=== PATIENT | male | born 1990 | race Caucasian/White ===

== ENCOUNTER → 2020-03-11 09:50 | Outpatient (POV) | payer BC, SELFPAY ==
[2020-03-11 10:07] VITALS: BP 154/98; PULSE 82; RESP 18; TEMP 36.4; O2SAT 99; BMI 33.2
--- NOTE | 2020-03-11 13:08 | HMH.PMCON ---
Assessment and Plan (1) Degenerative disc disease Current visit: Yes Status: Chronic Qualifiers: Spinal region: lumbar Qualified Code(s): M51.36 - Other intervertebral disc degeneration, lumbar region Category: Medical (2) Lumbar facet arthropathy Current visit: Yes Status: Chronic Category: Medical Code(s): M47.816 - Spondylosis without myelopathy or radiculopathy, lumbar region - Assessment and plan all Dx Assessment and Plan for all problems:: We will schedule L4-L5 L5-S1 bilateral medial branch block. I discussed the diagnostic nature of this with the patient. He understands. I will follow-up with him after his injection reassess his symptoms at that time he has been instructed to call the office if he has any issues prior to his next appointment. Dr. Crum has reviewed this note and agrees with this plan of care. This note was dictated using voice recognition software and may contain errors or omissions HPI - Data of Consult Consult date: 03/11/20 Requesting Physician: Karli Thorne APRN Primary Care Provider: Referral Provider, MD - Consult Narrative Reason for consult: Back pain, leg pain History of present illness: Mr. Luu is a 29 year old male who presents today for consultation in regards to his low back and leg pain. Patient had a work injury about 9 years ago resulting in low back and leg pain. This is been managed with epidural injections. Patient had epidurals in [place] and then in [place]. Patient is interested in starting to get his injections at this location. And what else we have to offer. Patient is in significant pain rating it a 7 out of 10 he is visibly uncomfortable. Patient is having a lot of focal pain. He states that epidural injections do not alleviate most of his low back pain. He is interested in RFA. I discussed the need for medial branch blocks as a diagnostic. He understands. He does have facet loading lumbar spine CC: Karli Thorne APRN [facility] History I have reviewed the patient's past medical history: Yes Medical History: Denies:: Cancer, Diabetes Mellitus Type 1, Diabetes Mellitus Type 2, MRSA *Have you ever received a pneumonia vaccine?: Yes *Have you received a flu vaccine this season?: Yes Laterality Cases: Right: Arthroscopy Knee, Other, Bilateral: Tonsillectomy Amputation: No Fractures: No - *Social History Smoking Status: Never smoker Alcohol Intake: never *Occupational Status:: other Housing: house Household Members: other *Travel in the last 8 weeks: None Family Hx:: Unable to obtain Review of Systems - Review of Systems ROS General: no recent weight change, no fever, no sleep disturbances Respiratory: no cough, no shortness of air, no recurring pulmonary infections Cardiovascular/Peripheral Vascular: No chest pain, No palpitations, no edema, no shortness of breath. Gastrointestinal: no new onset incontinence, normal bowel movements reported Genitourinary: no new onset incontinence Musculoskeletal: Back pain Psychiatric: normal mood/ affect Neurological: [denies new onset weakness in extremities], [denies new onset balance issues] Meds Home Medications Medication Instructions Recorded Confirmed Type Propranolol HCl 40 mg PO DAILY 03/11/20 03/11/20 History Allergies Allergy/AdvReac Type Severity Reaction Status Date / Time azithromycin Allergy Verified 03/11/20 10:12 calamine Allergy Verified 03/11/20 10:12 Objective Vital signs: Temp Pulse Resp BP Pulse Ox 97.5 F L 82 18 154/98 H 99 03/11/20 10:07 03/11/20 10:07 03/11/20 10:07 03/11/20 10:07 03/11/20 10:07 Narrative: Physical Exam General: Alert and oriented x3, no acute distress, pleasant and cooperative, [on room air] Lungs: Resps E/U, Symmetrical chest expansion, Eyes: PERRL Musculoskeletal: Flexion and extension of lumbar spine somewhat guarded secondary to pain, deep tendon reflexes
== END ==
PROVIDERS: Visit Provider Clinical Nurse Specialist Family Health
DX: M51.36 Other intervertebral disc degeneration, lumbar region (principal); M47.816 Spondylosis without myelopathy or radiculopathy, lumbar region
CPT/HCPCS: 99202

== ENCOUNTER 2020-03-14 10:16 | Day surgery (SDC) | payer BC, SELFPAY ==
[2020-03-14 10:44] VITALS: BP 145/101; PULSE 72; RESP 18; O2SAT 98; BMI 33.2
[2020-03-14 11:23] VITALS: BP 130/88; BP 132/85; PULSE 85; RESP 18; O2SAT 99
[2020-03-14 11:40] VITALS: BP 143/98; PULSE 70; RESP 20; O2SAT 98
--- NOTE | 2020-03-14 12:12 | HMH.PMPROC ---
- Procedure Date: 03/14/20 Time: 12:12 Anesthesiologist:: Franklin Crum MD Complications:: None Pre-procedure Diagnosis:: Degenerative disc disease of lumbar spine with lumbar spondylosis and facet arthropathy of lumbar spine Post-procedure Diagnosis:: Same Indications for Procedure:: This patient is a pleasant 29-year-old white male who we are treating for low back pain with lumbar spondylosis and lumbar facet arthropathy. He has had epidurals in the past. Most of his pain is now in his back worse with extension and twisting. We will do bilateral lumbar medial branch block/facet joint injections of L4-5 and L5-S1 today to help him with his pain symptoms. Procedure Details:: Lumbar medial branch block Informed consent was obtained and the risks and benefits of the procedure was explained to the patient. The back was prepped using ChloraPrep. The skin and subcutaneous tissues were anesthetized using lidocaine. I placed 22-gauge spinal needles into the facet joint/medial branches of L4-L5 and L5-S1 bilaterally. Needle placement was confirmed with dye. After this we injected 3 mL bupivacaine 0.25% and Depo-Medrol 20 mg into each facet joint/medial branch of L4-L5 and L5-S1 bilaterally. We used a total of 80 mg Depo-Medrol for both levels bilaterally. The patient tolerated the procedure well with no complications. Plan and Disposition:: We will follow-up with him in 2 weeks. Will reevaluate symptoms at that time. If successful we may proceed to radiofrequency ablation of these levels of L4-5 and L5-S1 bilaterally.
== END 2020-03-14 11:40 | disposition home or self-care (01) ==
LOC: SC.PAINP 10:18
PROVIDERS: Visit Provider Anesthesiology
DX: M51.36 Other intervertebral disc degeneration, lumbar region (principal); M47.816 Spondylosis without myelopathy or radiculopathy, lumbar region; M12.88 Other specific arthropathies, not elsewhere classified, other specified site; Z87.39 Personal history of other diseases of the musculoskeletal system and connective tissue; Z90.89 Acquired absence of other organs; Z79.899 Other long term (current) drug therapy; Z88.8 Allergy status to other drugs, medicaments and biological substances
CPT/HCPCS: 64493; 64494; J1030; Q9966

== ENCOUNTER → 2020-03-21 08:45 | Outpatient (CLI) | payer BC, SELFPAY ==
--- NOTE | 2020-03-21 08:50 | XR_ITS ---
PROCEDURE: XR KNEE LT 4V CLINICAL INDICATION: bilateral knee pain COMPARISON: XR KNEE RT 4V from 03/21/2020 FINDINGS: No fracture or dislocation. No lytic or blastic change. There is normal mineralization. The joint spaces are well-preserved. No significant degenerative/arthritic changes. No erosive changes evident. Other findings:None. IMPRESSION: No acute findings. Dictated by: Dr. Troy Ivey MD 03/21/2020 09:[address] Troy Ivey MD in [place] 03/21/2020 09:13
--- NOTE | 2020-03-21 08:50 | XR_ITS ---
PROCEDURE: XR KNEE RT 4V CLINICAL INDICATION: bilateral knee pain COMPARISON: No exams were available for comparison FINDINGS: No fracture or dislocation. No lytic or blastic change. There is normal mineralization. The joint spaces are well-preserved. No significant degenerative/arthritic changes. No erosive changes evident. Other findings:None. IMPRESSION: No acute findings. Dictated by: Dr. Troy Ivey MD 03/21/2020 09:[address] Troy Ivey MD in [place] 03/21/2020 09:14
== END ==
PROVIDERS: Visit Provider Orthopaedic Surgery
DX: M25.561 Pain in right knee (principal); M25.562 Pain in left knee
CPT/HCPCS: 73564

== ENCOUNTER → 2020-04-07 14:02 | Outpatient (POV) | payer BC, SELFPAY ==
[2020-04-07 14:34] VITALS: BP 157/94; PULSE 94; RESP 18; TEMP 36.6; O2SAT 99; BMI 32.5
--- NOTE | 2020-04-07 15:17 | P.CONS_ITS ---
[facility] Pain Management SOAP Note Subjective:: Patient is a pleasant 29-year-old white male who presents today for follow-up after medial branch block. Patient states that he did not have much relief after his lumbar medial branch block. Now he is having radiation of pain into his legs. He rates his pain a 6 out of 10. He has had epidurals in the past with good relief. Patient and I discussed doing another epidural injection and he is interested in moving forward. We also briefly discussed neuro stimulation. I do believe it may be a long-term solution to his issues. The majority of his pain is in his his low back and bilateral legs. I gave him information in regards to this. He is not on any anticoagulation therapy. ROS General: no recent weight change, no fever, no sleep disturbances Respiratory: no cough, no shortness of air, no recurring pulmonary infections Cardiovascular/Peripheral Vascular: No chest pain, No palpitations, no edema, no shortness of breath. Gastrointestinal: no new onset incontinence, normal bowel movements reported Genitourinary: no new onset incontinence Musculoskeletal: Back pain, leg pain Psychiatric: normal mood/ affect, [denies depression], [denies anxiety] Neurological: [denies new onset weakness in extremities], [denies new onset balance issues] Objective:: Physical Exam General: Alert and oriented x3, no acute distress, pleasant and cooperative, [on room air] Lungs: Resps E/U, Symmetrical chest expansion, Eyes: PERRL Musculoskeletal: Flexion and extension of lumbar spine somewhat guarded secondary to pain, deep tendon reflexes normal, strength in upper and lower extremities [5/5], slightly antalgic gait noted Neurological: speech clear, 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 I will follow- up with the patient after this reassess his symptoms at that time I did give him information in regards to neuro stimulation. He has been instructed to call the office if he has any issues prior to his next appointment. Dr. Crum has reviewed this note and agrees with this plan of care. This note was dictated using voice recognition software and may contain errors or omissions [facility] History I have reviewed the patient's past medical history: Yes Medical History: Denies:: Cancer, Diabetes Mellitus Type 1, Diabetes Mellitus Type 2, MRSA, Seizures *Have you ever received a pneumonia vaccine?: Yes *Have you received a flu vaccine this season?: Yes Laterality Cases: Left: Arthroscopy Knee, Right: Other, Bilateral: Tonsillectomy Amputation: No Fractures: No - *Social History Smoking Status: Never smoker Alcohol Intake: never *Occupational Status:: other Housing: house Household Members: other *Travel in the last 8 weeks: None Family Hx:: Unable to obtain
== END ==
PROVIDERS: Visit Provider Clinical Nurse Specialist Family Health
DX: M51.16 Intervertebral disc disorders with radiculopathy, lumbar region (principal); M47.816 Spondylosis without myelopathy or radiculopathy, lumbar region; M12.88 Other specific arthropathies, not elsewhere classified, other specified site
CPT/HCPCS: 99212

== ENCOUNTER 2020-04-11 14:18 | Day surgery (SDC) | payer BC, SELFPAY ==
[2020-04-11 15:13] VITALS: BP 129/89; PULSE 80; RESP 18; TEMP 37.1; O2SAT 98; BMI 32.5
--- NOTE | 2020-04-11 15:36 | HMH.PMPROC ---
- Procedure Date: 04/11/20 Time: 15:36 Anesthesiologist:: Franklin Crum MD Complications:: None Pre-procedure Diagnosis:: Degenerative disc disease of lumbar spine with lumbar radiculopathy symptoms Post-procedure Diagnosis:: Same Indications for Procedure:: This patient is a pleasant 29-year-old white male who we are treating for low back pain with lumbar radiculopathy symptoms. He is status post medial branch blocks without much relief. He does have pain radiating to both legs. We will do lumbar epidural steroid injection today to see if this will help with his pain symptoms. Procedure Details:: Lumbar epidural steroid injection under fluoroscopy Informed consent was obtained and the risk and benefits of the procedure was explained to the patient. The patient was taken to the procedure room. The patient was placed prone on the procedure table. The patient was prepped and draped in sterile fashion. C-arm fluoroscopy was used to view the lumbar spine. Skin and subcutaneous tissues were anesthetized using lidocaine. I placed an 18-gauge epidural needle and advanced into the L4-L5 interspace using fluoroscopic guidance and [id number] to air. After confirmation of needle placement in the epidural space with dye I injected 2 mL of lidocaine 1.5% with Depo-Medrol 80 mg. Patient tolerated the procedure well with no complications. Plan and Disposition:: We will plan on following up with him in 2 weeks. Will reevaluate symptoms at that time.
[2020-04-11 15:42] VITALS: BP 132/85; PULSE 85; RESP 18; O2SAT 99
[2020-04-11 15:43] VITALS: BP 138/89; PULSE 88; RESP 18; O2SAT 98
[2020-04-11 15:47] VITALS: BP 155/99; PULSE 75; RESP 20; O2SAT 99
== END 2020-04-11 15:47 | disposition home or self-care (01) ==
LOC: SC.PAINP 14:20
PROVIDERS: PCP Family Medicine; Visit Provider Anesthesiology
DX: M51.16 Intervertebral disc disorders with radiculopathy, lumbar region (principal); I49.9 Cardiac arrhythmia, unspecified; F43.10 Post-traumatic stress disorder, unspecified; Z87.39 Personal history of other diseases of the musculoskeletal system and connective tissue; Z90.89 Acquired absence of other organs; Z88.1 Allergy status to other antibiotic agents; Z88.8 Allergy status to other drugs, medicaments and biological substances; Z79.899 Other long term (current) drug therapy
CPT/HCPCS: 62323; J1040; Q9966

== ENCOUNTER → 2020-05-08 08:55 | Outpatient (POV) | payer BC, SELFPAY ==
[2020-05-08 09:26] VITALS: BP 152/84; PULSE 85; RESP 18; O2SAT 98; BMI 32.5
--- NOTE | 2020-05-08 10:20 | HMH.PAINSOAP ---
[facility] Pain Management SOAP Note Subjective:: Patient is a 29-year-old white male who presents today for follow-up. He recently underwent a lumbar epidural steroid injection at L4-L5. Patient is being treated for low back pain with lumbar radiculopathy symptoms. He complains of pain radiating into his right leg causing numbness and tingling and intermittent numbness and tingling to his left foot. He reports the pain to be worse with sitting and driving. He says when he is laying down the pain is less. Patient says that he has tried medial branch blocks as well as lumbar epidural steroid injections for over 11 years. 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 He says that he has tried multiple series of injections with no relief. He has even been hospitalized in the past for the pain. He says his last imaging of his lumbar spine was in 2016. He would like to discuss possible imaging and discuss possible spinal cord stimulation. Review of Systems General: No recent weight changes, no fever, no sleep disturbances Respiratory: No cough, no shortness of air, no recurring pulmonary infections Cardiovascular/peripheral vascular: No chest pain, no palpitations, no edema, no shortness of breath Gastrointestinal: No new onset incontinence, normal bowel movements reported Genitourinary: No new onset incontinence Musculoskeletal: Back pain, right leg pain with numbness and tingling, intermittent foot numbness and tingling Psychiatric: Normal mood/affect Neurological: [Denies weakness in extremities], [denies balance issues] Objective:: Physical exam General: Alert and oriented x3, no acute distress, pleasant and cooperative, [on room air] Lungs: Respirations even and unlabored, symmetrical chest expansion Eyes: PERRL Musculoskeletal: Flexion and extension of lumbar spine somewhat guarded secondary to pain, deep tendon reflexes normal, strength in upper and lower extremities [5/5], [abnormal gait noted] Neurological: Speech clear, retort kiln 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 He says that he needs to get back to work and does say that he is having difficulty even doing normal activities throughout the house as well as with his 1-year-old son. He says that he would like to just get some relief. At this point, he has tried all modalities of therapy with physical therapy, home stretching program, and inflammatories. Patient is not interested in oral opiates. Rates his pain a 6 out of 10. We will get another MRI of his lumbar spine. We will also send him for a psychological evaluation to see if he is an appropriate candidate for an implanted device such as spinal cord stimulation or intrathecal therapy. He has tried injections not gotten any relief. Patient has been instructed to contact clinic if he has any concerns before his next appointment. The patient and I specifically discussed risk factors for COVID19. These risks include, but are not limited to age greater than 60, heart or lung disease, diabetes, immunosuppression, and travel. We also discussed NSAIDs may worsen COVID19 infection or symptoms. Patient should not use NSAIDs to treat COVID19 signs or symptoms. Patient was also informed that any type of corticosteroid of any form (oral or injection) will decrease the patient's immune system response and may increase the likelihood of COVID19 infection [address] symptoms[address] Crum has reviewed this note and agrees with this plan of care. This note was dictated using voice recognition software and make contain errors or omissions. [facility] History I have reviewed the patient's past medical history: Yes Medical History: Reports:: Arrhythmia Denies:: Cancer, Diabetes Mellitus Type 1, Diabetes Mellitus Type 2, Music Adapter
== END ==
PROVIDERS: Visit Provider Clinical Nurse Specialist Family Health
DX: M51.16 Intervertebral disc disorders with radiculopathy, lumbar region (principal); G89.29 Other chronic pain
CPT/HCPCS: 99212

== ENCOUNTER → 2020-05-15 12:50 | Outpatient (CLI) | payer BC, SELFPAY ==
--- NOTE | 2020-05-15 12:52 | MR_ITS ---
PROCEDURE: MR LUMBAR SPINE WO CON CLINICAL INDICATION: BACK PAIN Low-back pain with pressure radiating down into the right leg. COMPARISON: No exams were available for comparison TECHNIQUE: Standard multiplanar multiecho sequences are performed without contrast. 3-D MIP and myelographic images are also rendered and reviewed FINDINGS: There is normal lumbar lordosis. No scoliosis. The vertebral body heights and marrow signal is maintained. There is normal alignment. The spinal cord ends at the L1 level. L1-L2: Unremarkable. L2-L3: Small broad-based disc bulge with mild anterior thecal sac compression. Neural foramen appear adequately patent. L3-L4: Moderate-sized broad-based disc bulge with a right midline small/moderate size disc protrusion is seen causing thecal sac compression from the right side. Moderate right and mild left neural foraminal narrowing. There is bilateral mild/moderate facet arthrosis with mild ligamentum flavum hypertrophy and mild/moderate spinal canal stenosis. L4-L5: Moderate sized broad-based disc bulge. Anterior thecal sac compression. Mild/moderate bilateral neural foraminal stenosis. Mild facet arthrosis. L5-S1: Degenerative disc disease changes seen with a small bulging disc. Mild/moderate left-sided and mild right-sided neural foraminal narrowing. Mildly hypertrophic bilateral facet arthrosis. Paraspinal soft tissues are unremarkable. IMPRESSION: Disc degeneration and disc contour abnormality is seen from L2 through S1 levels with associated neural foraminal and central canal narrowing, specifically at L3-L4 and L4-L5 levels, as described in the report. Dictated by: Alton Malone 05/15/2020 15:11 Electronically signed by Alton Malone in [place] 05/15/2020 15:11
== END ==
PROVIDERS: Visit Provider Clinical Nurse Specialist Family Health
DX: M54.5 Low back pain (principal)
CPT/HCPCS: 72148; 76376

== ENCOUNTER → 2020-05-22 09:49 | Outpatient (POV) | payer BC, SELFPAY ==
[2020-05-22 09:56] VITALS: BP 125/88; PULSE 85; RESP 18; TEMP 36.8; O2SAT 98; BMI 30.5
--- NOTE | 2020-05-22 10:35 | HMH.PAINSOAP ---
[facility] Pain Management SOAP Note Subjective:: Patient is a 29-year-old white male who presents today for MRI follow-up. He is being treated for low back pain with lumbar radiculopathy symptoms. Patient has undergone epidural steroid injections in the past and has gotten relief but his pain does return. He complains of pain in his low back with radiation into his right leg causing numbness and tingling. He says it is worse with sitting and driving. Laying down does lessen the pain. He and I did review his MRI today. Patient has had this pain for greater than 7 years. He is tried physical therapy along with a continued home stretching program. He is also used ice and heat therapies and injections. He does not get any long-term relief. His previous imaging was from 2016 which did show significant spinal stenosis as well as the new imaging. Patient says that he has discussed spinal cord stimulation with the providers in the past, however, he would like to have a neurosurgical consult before proceeding with any type of implanted devices. He does rate his pain a 7 out of 10 today. Review of Systems General: No recent weight changes, no fever, no sleep disturbances Respiratory: No cough, no shortness of air, no recurring pulmonary infections Cardiovascular/peripheral vascular: No chest pain, no palpitations, no edema, no shortness of breath Gastrointestinal: No new onset incontinence, normal bowel movements reported Genitourinary: No new onset incontinence Musculoskeletal: Neck pain, right leg pain with numbness and tingling Psychiatric: Normal mood/affect Neurological: [Denies weakness in extremities], [denies balance issues] Objective:: Physical exam General: Alert and oriented x3, no acute distress, pleasant and cooperative, [on room air] Lungs: Respirations even and unlabored, symmetrical chest expansion Eyes: PERRL Musculoskeletal: Flexion and extension of lumbar spine somewhat guarded secondary to pain, deep tendon reflexes normal, strength in upper and lower extremities [5/5], [abnormal gait noted] Neurological: Speech clear, hand clerical 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 We have also discussed the vert a flex procedure. The patient says that he would prefer to discuss his MRI with neurologist before proceeding with any type of implanted device. We will schedule him for neurosurgical consult and see him back in the clinic afterwards to reassess his symptoms discuss a further plan of care. Patient has been instructed to contact clinic if he has any concerns for his next appointment. The patient and I specifically discussed risk factors for COVID19. These risks include, but are not limited to age greater than 60, heart or lung disease, diabetes, immunosuppression, and travel. We also discussed NSAIDs may worsen COVID19 infection or symptoms. Patient should not use NSAIDs to treat COVID19 signs or symptoms. Patient was also informed that any type of corticosteroid of any form (oral or injection) will decrease the patient's immune system response and may increase the likelihood of COVID19 [address] Crum has reviewed this note and agrees with this plan of care. This note was dictated using voice recognition software and make contain errors or omissions. [facility] History I have reviewed the patient's past medical history: Yes Medical History: Reports:: Arrhythmia Denies:: Cancer, Diabetes Mellitus Type 1, Diabetes Mellitus Type 2, Internal Pacemaker, MRSA, Seizures *Have you ever received a pneumonia vaccine?: Yes *Have you received a flu vaccine this season?: Yes Laterality Cases: Left: Arthroscopy Knee, Right: Other, Bilateral: Tonsillectomy Other Surgeries: No: Pacemaker Amp
== END ==
PROVIDERS: Visit Provider Clinical Nurse Specialist Family Health
DX: M51.16 Intervertebral disc disorders with radiculopathy, lumbar region (principal); M12.88 Other specific arthropathies, not elsewhere classified, other specified site; M48.062 Spinal stenosis, lumbar region with neurogenic claudication
CPT/HCPCS: 99212

== ENCOUNTER → 2020-06-26 10:53 | Outpatient (POV) | payer BC, SELFPAY ==
[2020-06-26 11:18] VITALS: BP 125/86; PULSE 85; RESP 19; TEMP 36.9; O2SAT 93; BMI 33.9
--- NOTE | 2020-06-26 12:03 | HMH.PAINSOAP ---
[facility] Pain Management SOAP Note Subjective:: Patient is a 29-year-old white male who presents today for follow-up after his MRI and follow-up with neurosurgeon. Patient says that he was told per the neurosurgeon that he was not a surgical candidate. He has been treated for degenerative disc disease lumbar spine with lumbar radiculopathy symptoms as well as facet arthropathy lumbar spine, spinal stenosis lumbar spine and neurogenic claudication symptoms. At the patient's last visit, he and I did discuss possible vert a flex procedure as well as a spinal cord stimulator. Patient says that he did review his own MRI and says I can read MRIs and I know I have a lot going on . Patient says from his expert opinion , he does not feel a Veriflex would be appropriate for his pain. Patient says he would like to proceed with possible spinal cord stimulator. He says he has tried to get a psychological evaluation scheduled on 3 occasions and never received a call back. He says that he did contact the clinic and was told that he would have an appointment scheduled. After further discussion with the clinic, the patient's insurance is not approved with Dr. Victor, and as a result, he was scheduled with Dr. Celis. Patient was contacted per Dr. Celis's office, however, it was an incorrect phone number. Patient is also complaining of right elbow pain. 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 He is requesting an orthopedic consultation for this. He says that corticosteroid injections would not relieve the pain in his right elbow. Patient does rate his pain a 7 out of 10. He says he is currently trying to get disability because he has not been able to work in the last 5 to 6 months. He says that this is a drawn out process and is still working on the paperwork for this at this time. Patient has tried multiple modalities of therapy. He has tried physical therapy for greater than 6 weeks, however, it did worsen his pain. Patient was taking meloxicam with no relief. He is also tried muscle relaxers which have caused severe drowsiness and he was unable to take the medication. He has had injective therapy which only gives him relief for up to 12 hours but the pain does return. He says that at this point he is exhausted all other measures. He was not considered a surgical candidate. He would like to proceed with a psychological evaluation to determine if he is a good candidate for spinal cord stimulation. Review of Systems General: No recent weight changes, no fever, no sleep disturbances Respiratory: No cough, no shortness of air, no recurring pulmonary infections Cardiovascular/peripheral vascular: No chest pain, no palpitations, no edema, no shortness of breath Gastrointestinal: No new onset incontinence, normal bowel movements reported Genitourinary: No new onset incontinence Musculoskeletal: Low back pain, right leg pain with numbness and tingling, right elbow pain Psychiatric: Normal mood/affect Neurological: [Denies weakness in extremities], [denies balance issues] Objective:: Physical exam General: Alert and oriented x3, no acute distress, pleasant and cooperative, [on room air] Lungs: Respirations even and unlabored, symmetrical chest expansion Eyes: PERRL Musculoskeletal: Flexion and extension of lumbar spine somewhat guarded secondary to pain, deep tendon reflexes normal, strength in upper and lower extremities [5/5], [abnormal gait noted] Neurological: Speech clear, gateman equal, no gross sensory deficit Assessment:: Degenerative disc disease lumbar spine with lumbar radiculopathy symptoms, spinal stenosis lumbar spine with neurogenic claudication symptoms, facet arthropathy lumbar spine Plan:: At this point the patient has exhausted all measures of conservative therapies. He would like to proceed with psychological evaluation to see if he is an appropriate candidate for possible spinal cord stimulation trial. We will sche
== END ==
PROVIDERS: Visit Provider Clinical Nurse Specialist Family Health
DX: M51.16 Intervertebral disc disorders with radiculopathy, lumbar region (principal); M48.062 Spinal stenosis, lumbar region with neurogenic claudication; M12.88 Other specific arthropathies, not elsewhere classified, other specified site
CPT/HCPCS: 99212

== ENCOUNTER → 2020-07-01 12:02 | Outpatient (CLI) | payer BC, SELFPAY ==
--- NOTE | 2020-07-01 12:09 | XR_ITS ---
PROCEDURE: XR ELBOW RT MIN 3V CLINICAL INDICATION: ELBOW PAIN History of osteochondritis dissecans COMPARISON: No exams were available for comparison FINDINGS: A 3 mm calcific density is present along the tip of the coronoid process. This is well-circumscribed and could represent an old fracture or an accessory ossification center. There is a lucency present through the trochlea suggesting a fracture or osteochondral fragment. CT may confirm.. There is mild spurring along the distal humerus. Other findings:None. IMPRESSION: 1. Well-circumscribed lucency involving the trochlea which could represent an osteochondral fragment or nondisplaced fracture. CT may provide further evaluation. 2. Osteoarthritic changes with small old avulsion injury or accessory ossification center at the coronoid process Dictated by: Uvaldo Edwards MD 07/01/2020 18:06 Uvaldo Edwards MD in [place] 07/01/2020 18:06
== END ==
PROVIDERS: PCP Family Medicine; Visit Provider Clinical Nurse Specialist Family Health
DX: M25.521 Pain in right elbow (principal)
CPT/HCPCS: 73080

== ENCOUNTER → 2020-09-18 08:35 | Outpatient (POV) | payer BC, SELFPAY ==
[2020-09-18 08:50] VITALS: BP 125/85; PULSE 87; RESP 18; TEMP 36.4; O2SAT 99; BMI 33.9
--- NOTE | 2020-09-18 09:06 | HMH.PAINSOAP ---
[facility] Pain Management SOAP Note Subjective:: Patient is a 29-year-old white male who presents today for follow-up. He has been treated for chronic low back pain with leg pain. He is also been treated for facet arthropathy of his lumbar spine. Patient has tried epidural steroid injection along with medial branch blocks. The patient did not get any significant relief from either injection. Is also tried physical therapy for greater than 6 weeks along with continued home stretching program. Patient says anti-inflammatories have not been beneficial for him. He did have a right elbow surgery recently. He says that he was given oxycodone which did give him relief of his low back pain. He and I did discuss we will not be able to prescribe oxycodone, however, we can start the patient on tramadol. He has taken gabapentin in the past which gave him short-term relief. He and I did discuss taking tramadol and gabapentin together to see if this gives him long-term relief for his pain. Unfortunately, the patient was denied by his insurance company for a spinal cord stimulator. The patient did not want to take oral medications, however, his insurance company has given him little options for pain relief. His pain an 8 out of 10 today. He is having difficulty with ambulation due to the pain. Review of Systems General: No recent weight changes, no fever, no sleep disturbances Respiratory: No cough, no shortness of air, no recurring pulmonary infections Cardiovascular/peripheral vascular: No chest pain, no palpitations, no edema, no shortness of breath Gastrointestinal: No new onset incontinence, normal bowel movements reported Genitourinary: No new onset incontinence Musculoskeletal: Low back pain, leg pain Psychiatric: Normal mood/affect Neurological: [Denies weakness in extremities], [denies balance issues] Objective:: Physical exam General: Alert and oriented x3, no acute distress, pleasant and cooperative, [on room air] Lungs: Respirations even and unlabored, symmetrical chest expansion Eyes: PERRL Musculoskeletal: Flexion and extension of lumbar spine somewhat guarded secondary to pain, deep tendon reflexes normal, strength in upper and lower extremities [5/5], [abnormal gait noted] Neurological: Speech clear, head librarian equal, no gross sensory deficit Assessment:: Degenerative disc disease lumbar spine with lumbar radiculopathy symptoms, facet arthropathy, spinal stenosis with neurogenic claudication symptoms Plan:: Patient I did discuss possible Vertiflex procedure. He would need to undergo an epidural with an epidurogram to determine if he is a candidate for the procedure. At this time, he would like to try the medication before proceeding with an epidurogram. He is concerned that the insurance company will not approve a Vertiflex procedure. We will give him a month medication of tramadol 50 mg 1 tablet p.o. 3 times daily and gabapentin 100 mg 1 tablet p.o. at bedtime. We will see him back in the clinic in a month to reassess his symptoms. If the patient is not getting relief with the medications, the next option would be an epidural with an epidurogram. We have exhausted all other measures. He does understand this. He has been instructed to contact the clinic if he has any concerns before his next appointment. The patient and I specifically discussed risk factors for COVID19. These risks include, but are not limited to age greater than 60, heart or lung disease, diabetes, immunosuppression, and travel. We also discussed NSAIDs may worsen COVID19 infection or symptoms. Patient should not use NSAIDs to treat COVID19 signs or symptoms. Patient was also informed that any type of corticosteroid of any form (oral or injection) will decrease the patient's immune system response and may increase the likelihood of COVID19 [address] [facility] History I have reviewed the patient's past medical history: Yes Medical History: Rep
--- NOTE | 2020-10-16 13:52 | PC.NURSE ---
called in Rx for tramadol hcl 50mg TID with no refills and gabapentin 100mg qhs with no refills to [facility] pharmacy in [place] per providers order.
== END ==
PROVIDERS: Visit Provider Clinical Nurse Specialist Family Health
DX: M51.16 Intervertebral disc disorders with radiculopathy, lumbar region (principal); M54.06 Panniculitis affecting regions of neck and back, lumbar region; M48.062 Spinal stenosis, lumbar region with neurogenic claudication
CPT/HCPCS: 99212

== ENCOUNTER → 2020-10-23 08:50 | Outpatient (POV) | payer BC, SELFPAY ==
[2020-10-23 08:59] VITALS: BP 133/78; PULSE 80; RESP 18; TEMP 36.8; O2SAT 98; BMI 34.5
--- NOTE | 2020-10-23 09:21 | P.CONS_ITS ---
[facility] Pain Management SOAP Note Subjective:: Patient is a pleasant 30-year-old white male who presents today for follow-up. Patient is having increased pain. Mostly in his back. He has no pain when he is laying down however when he is sitting standing walking or leaning forward he is having pain. Patient's failed medial branch blocks, epidural injections. Patient has been medically managed with no real long-term success he rates his pain a 9 out of 10 today. I did review his last MRI. We discussed a second opinion by neurosurgeon. We will send him to Dr. Peewee Duffy. He may be a surgical candidate. Patient has tried tramadol 50 mg 1 p.o. 3 times daily and gabapentin. He is not got any relief from the gabapentin we will switch him to Lyrica. ROS General: no recent weight change, no fever, no sleep disturbances Respiratory: no cough, no shortness of air, no recurring pulmonary infections Cardiovascular/Peripheral Vascular: No chest pain, No palpitations, no edema, no shortness of breath. Gastrointestinal: no new onset incontinence, normal bowel movements reported Genitourinary: no new onset incontinence Musculoskeletal: Back pain, leg pain Psychiatric: normal mood/ affect Neurological: [denies new onset weakness in extremities], [denies new onset balance issues] Objective:: Physical Exam General: Alert and oriented x3, no acute distress, pleasant and cooperative, [on room air] Lungs: Resps E/U, Symmetrical chest expansion, Eyes: PERRL Musculoskeletal: Flexion and extension of lumbar spine somewhat guarded secondary to pain, deep tendon reflexes normal, strength in upper and lower extremities [5/5], [abnormal gait noted] Neurological: speech clear, safety and skill based pay manager equal, no gross sensory deficits Assessment:: Degenerative disc disease lumbar spine with lumbar radiculopathy symptoms, facet arthropathy spinal stenosis with neurogenic claudication symptoms Gina is like I told Mayur she is like Plan:: We will increase his tramadol to 250 mg tablets twice a day and will start him on Lyrica 75 mg 1 p.o. twice daily and methocarbamol 750 at nighttime. We will also send him to Dr. Duffy for a consultation in regards to potential surgery. [facility] #[id number] reviewed and appropriate. Dr. Crum has reviewed this note and agrees with this plan of care. This note was dictated using voice recognition software and may contain errors or omissions [facility] History I have reviewed the patient's past medical history: Yes Medical History: Reports:: Arrhythmia Denies:: Cancer, Diabetes Mellitus Type 1, Diabetes Mellitus Type 2, Internal Pacemaker, MRSA, Seizures *Have you ever received a pneumonia vaccine?: No *Have you received a flu vaccine this season?: No Laterality Cases: Left: Arthroscopy Knee, Right: Other, Bilateral: Tonsillectomy Other Surgeries: No: Pacemaker Amputation: No Fractures: No - *Social History Smoking Status: Never smoker Alcohol Intake: never *Occupational Status:: other Housing: house Household Members: spouse *Travel in the last 8 weeks: None Family Hx:: Unable to obtain
== END ==
PROVIDERS: Visit Provider Clinical Nurse Specialist Family Health
DX: M51.16 Intervertebral disc disorders with radiculopathy, lumbar region (principal); M48.062 Spinal stenosis, lumbar region with neurogenic claudication; M54.06 Panniculitis affecting regions of neck and back, lumbar region
CPT/HCPCS: 99212; G0463

== ENCOUNTER → 2020-11-24 09:19 | Outpatient (POV) | payer BC, SELFPAY ==
--- NOTE | 2020-11-24 09:57 | HMH.PAINSOAP ---
[facility] Pain Management SOAP Note Subjective:: Patient is a pleasant 30-year-old white male who presents today for follow-up. Patient was seen by Dr. Mcnamara for surgical consultation it was deemed that he was not a surgical candidate. It was recommended that he goes forward with a neurostimulator trial. Patient has a lot of bilateral lower extremity pain. Patient has color changes, temperature changes along with numbness and tingling. Patient has had arthroscopies in the past of his left knee. Patient is interested in pursuing a nerve stimulator. He has had an appropriate psychological evaluation. He has failed physical therapy, medications, anti-inflammatories and 6 months of conservative treatment including injection therapy. ROS General: no recent weight change, no fever, no sleep disturbances Respiratory: no cough, no shortness of air, no recurring pulmonary infections Cardiovascular/Peripheral Vascular: No chest pain, No palpitations, no edema, no shortness of breath. Gastrointestinal: no new onset incontinence, normal bowel movements reported Genitourinary: no new onset incontinence Musculoskeletal: Back pain, leg pain Psychiatric: normal mood/ affect Neurological: [denies new onset weakness in extremities], [denies new onset balance issues] Objective:: Physical Exam General: Alert and oriented x3, no acute distress, pleasant and cooperative, [on room air] Lungs: Resps E/U, Symmetrical chest expansion, Eyes: PERRL Musculoskeletal: Flexion and extension of lumbar spine somewhat guarded secondary to pain, deep tendon reflexes normal, strength in upper and lower extremities [5/5], [abnormal gait noted] Neurological: speech clear, applications systems engineer equal, no gross sensory deficits Assessment:: Degenerative disc disease lumbar spine lumbar radiculopathy, CRPS type II, spinal stenosis with neurogenic claudication Plan:: Patient failed 6 months of conservative treatment. Patient is not a surgical candidate. He rates his pain a 8 out of 10 today. He is currently on Lyrica, tramadol, methocarbamol. I will follow-up with him after his spinal cord stimulator trial reassess his symptoms at that time he has been instructed to call the office if he has any issues prior to his next appointment. Dr. Crum has reviewed this note and agrees with this plan of care. This note was dictated using voice recognition software and may contain errors or omissions [facility] History I have reviewed the patient's past medical history: Yes Medical History: Reports:: Arrhythmia Denies:: Cancer, Diabetes Mellitus Type 1, Diabetes Mellitus Type 2, Internal Pacemaker, MRSA, Seizures *Have you ever received a pneumonia vaccine?: No *Have you received a flu vaccine this season?: No Laterality Cases: Left: Arthroscopy Knee, Right: Other, Bilateral: Tonsillectomy Other Surgeries: No: Pacemaker Amputation: No Fractures: No - *Social History Smoking Status: Never smoker Alcohol Intake: never *Occupational Status:: other Housing: house Household Members: spouse *Travel in the last 8 weeks: None Family Hx:: Unable to obtain
[2020-11-24 10:20] VITALS: BP 164/92; PULSE 77; RESP 18; O2SAT 99; BMI 33.9
== END ==
PROVIDERS: Visit Provider Clinical Nurse Specialist Family Health
DX: M51.16 Intervertebral disc disorders with radiculopathy, lumbar region (principal); M48.062 Spinal stenosis, lumbar region with neurogenic claudication; G57.73 Causalgia of bilateral lower limbs
CPT/HCPCS: 99212; G0463

== ENCOUNTER → 2021-02-02 10:56 | Outpatient (POV) | payer BC, SELFPAY ==
[2021-02-02 11:21] VITALS: BP 128/87; PULSE 89; RESP 18; TEMP 36.8; O2SAT 99; BMI 33.2
--- NOTE | 2021-02-02 12:33 | P.CONS_ITS ---
[facility] Pain Management SOAP Note Subjective:: Patient is a pleasant 30-year-old white male who presents today for follow-up. Patient has been seen by 2 neurosurgeons and deemed not a surgical candidate. It was recommended that he goes forward with a neurostimulator trial. His insurance has denied this twice. Is a lot of bilateral lower extremity pain. Along with numbness and tingling. Patient has color changes, temperature changes along with numbness. Patient has had arthroscopies in the past of his left knee. At this time he is on Lyrica and tramadol. Patient is not having any relief with the Lyrica. We will take him off of this. Currently on tramadol 50 mg 1 p.o. 5 times a day. He is failed physical therapy, medications, anti-inflammatories and 6 months of conservative treatment including injection therapy. He is uninterested in pursuing any more injection therapy he rates his pain today a 7 out of 10. ROS General: no recent weight change, no fever, no sleep disturbances Respiratory: no cough, no shortness of air, no recurring pulmonary infections Cardiovascular/Peripheral Vascular: No chest pain, No palpitations, no edema, no shortness of breath. Gastrointestinal: no new onset incontinence, normal bowel movements reported Genitourinary: no new onset incontinence Musculoskeletal: Back pain, leg pain Psychiatric: normal mood/ affect Neurological: [denies new onset weakness in extremities], [denies new onset balance issues] Objective:: Physical Exam General: Alert and oriented x3, no acute distress, pleasant and cooperative, [on room air] Lungs: Resps E/U, Symmetrical chest expansion, Eyes: PERRL Musculoskeletal: Flexion and extension of lumbar spine somewhat guarded secondary to pain, deep tendon reflexes normal, strength in upper and lower extremities [5/5], [abnormal gait noted] Neurological: speech clear, self pay collector equal, no gross sensory deficits Assessment:: Degenerative disc disease lumbar spine lumbar radiculopathy, spinal stenosis neurogenic claudication Plan:: We will continue the patient's tramadol at this time we will see him back in 3 months reassess his symptoms at that time. He has been instructed to call the office if he has any issues prior to his next appointment. Dr. Crum has reviewed this note and agrees with this plan of care. This note was dictated using voice recognition software and may contain errors or omissions [facility] History I have reviewed the patient's past medical history: Yes Medical History: Reports:: Arrhythmia Denies:: Cancer, Diabetes Mellitus Type 1, Diabetes Mellitus Type 2, Internal Pacemaker, MRSA, Seizures *Have you ever received a pneumonia vaccine?: Yes *Have you received a flu vaccine this season?: Yes Laterality Cases: Left: Arthroscopy Knee, Right: Other, Bilateral: Tonsillectomy Other Surgeries: No: Pacemaker Amputation: No Fractures: No - *Social History Smoking Status: Never smoker Alcohol Intake: never *Occupational Status:: other Housing: house Household Members: spouse *Travel in the last 8 weeks: None Family Hx:: Unable to obtain
== END ==
PROVIDERS: Visit Provider Clinical Nurse Specialist Family Health
DX: M51.16 Intervertebral disc disorders with radiculopathy, lumbar region (principal); M48.062 Spinal stenosis, lumbar region with neurogenic claudication
CPT/HCPCS: 99212; G0463

== ENCOUNTER → 2021-07-20 11:01 | Outpatient (POV) | payer BC, SELFPAY ==
[2021-07-20 11:07] VITALS: BP 160/95; PULSE 91; RESP 18; O2SAT 95; BMI 33.9
--- NOTE | 2021-07-20 12:23 | HMH.PAINSOAP ---
[facility] Pain Management SOAP Note Subjective:: Patient is a 30-year-old white male who presents today for medication refills. Patient is seen in the clinic for degenerative disc disease lumbar spine with lumbar radicular symptoms and spinal stenosis with neurogenic claudication symptoms. Patient has been referred to neurosurgeons and was considered not a candidate for surgical intervention by both neurosurgeons. We did attempt to get the patient approved for neurostimulator trial, but was denied by his insurance twice. He is having pain in his low back with radiation into bilateral lower extremities. He has had arthroscopies in the past for his left knee. The patient is currently taking tramadol 50 mg 1 tablet p.o. 4 times daily and methocarbamol. He has tried Lyrica in the past but did not get much relief. As result, he was started on gabapentin. He was taking 100 mg at bedtime which gave him some relief. The patient's pain is a 6 out of 10 today. Review of Systems General: No recent weight changes, no fever, no sleep disturbances Respiratory: No cough, no shortness of air, no recurring pulmonary infections Cardiovascular/peripheral vascular: No chest pain, no palpitations, no edema, no shortness of breath Gastrointestinal: No new onset incontinence, normal bowel movements reported Genitourinary: No new onset incontinence Musculoskeletal: Low back pain with radiation into bilateral lower extremities Psychiatric: [Normal mood/affect] Neurological: Weakness bilateral lower extremities intermittent Objective:: Physical exam General: Alert and oriented x3, no acute distress, pleasant and cooperative, [on room air] Lungs: Respirations even and unlabored, symmetrical chest expansion Eyes: PERRL Musculoskeletal: Flexion and extension of lumbar [spine] somewhat guarded secondary to pain, [antalgic gait noted] Neurological: Speech clear, Assessment:: Degenerative disc disease lumbar spine with lumbar radiculopathy symptoms Plan:: We will refill the patient's tramadol 50 mg 1 tablet p.o. 4 times daily. We will start the patient back on gabapentin 300 mg 1 tablet p.o. at bedtime. We will continue the patient's methocarbamol 750 mg 1 tablet p.o. daily. We will give the patient 3 months of medication and plan to see him back in the clinic in 3 months for reevaluation of symptoms. He has been instructed to contact clinic if he has any concerns before his next appointment. Risks and benefits of the medication have been explained in detail to the patient. The patient has been advised to consult with his/her primary care provider and pharmacist regarding drug-drug interaction of medications currently prescribed. Patient has been prescribed a controlled substance after being counseled on the medication, medication safety, and possible side effects. [facility] report has been obtained and reviewed prior to prescription and found to be appropriate. Opioid contract was reviewed and signed by the patient, and that they have agreed to all of the terms set forth by our compliance program. Patient has been instructed to contact the clinic with any concerns before the next appointment. Dr. Crum has reviewed this note and agrees with this plan of care. This note was dictated using voice recognition software and make contain errors or omissions. [facility] History I have reviewed the patient's past medical history: Yes Medical History: Reports:: Arrhythmia Denies:: Cancer, Diabetes Mellitus Type 1, Diabetes Mellitus Type 2, Internal Pacemaker, MRSA, Seizures *Have you ever received a pneumonia vaccine?: No *Have you received a flu vaccine this season?: No Laterality Cases: Left: Arthroscopy Knee, Right: Other, Bilateral: Tonsillectomy Other Surgeries: No: Pacemaker Amputation: No Fractures: No - *Social History Smoking Status: Never smoker Alcohol Intake: never *Occupational Status:: employed Housing: house Household Members: spouse *Travel in t
== END ==
PROVIDERS: Visit Provider Clinical Nurse Specialist Family Health
DX: M51.16 Intervertebral disc disorders with radiculopathy, lumbar region (principal)
CPT/HCPCS: 99212; G0463

== ENCOUNTER → 2021-11-03 15:08 | Outpatient (POV) | payer BC, SELFPAY ==
[2021-11-03 15:18] VITALS: BP 179/88; PULSE 88; RESP 18; O2SAT 96; BMI 31.8
--- NOTE | 2021-11-03 18:41 | HMH.PAINSOAP ---
[facility] Pain Management SOAP Note Subjective:: Patient is a 31-year-old white male who presents today for follow-up. We are treating the patient for degenerative disc disease lumbar spine with lumbar radiculopathy symptoms with spinal stenosis. 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 We have made multiple attempts to get the patient approved for spinal cord stimulator. He has been denied by his insurance company. We have discussed intrathecal therapy, however, the patient's not interested at this time. He is also unsure that he would like to proceed with Vertiflex. We have discussed this with him in the past. He is managed with tramadol 50 mg 1 tablet p.o. 4 times daily, methocarbamol 750 mg 1 tablet p.o. daily, and gabapentin 300 mg 1 tablet p.o. at bedtime. He says that the pain is tolerable with oral medications. The medications do not take all of his pain away but do allow him to be somewhat functional. Unfortunately, due to pain, the patient is having difficulty working. Patient's pain is in low back area with radiation into bilateral lower extremities. [facility] #[id number] has been reviewed and is appropriate. Drug screen is appropriate. Review of Systems General: No recent weight changes, no fever, no sleep disturbances Respiratory: No cough, no shortness of air, no recurring pulmonary infections Cardiovascular/peripheral vascular: No chest pain, no palpitations, no edema, no shortness of breath Gastrointestinal: No new onset incontinence, normal bowel movements reported Genitourinary: No new onset incontinence Musculoskeletal: Low back pain with radiation into bilateral lower extremities Psychiatric: [Normal mood/affect] Neurological: [Denies weakness in extremities], [denies balance issues] Objective:: Physical exam General: Alert and oriented x3, no acute distress, pleasant and cooperative Lungs: Respirations even and unlabored, symmetrical chest expansion Eyes: PERRL Musculoskeletal: Flexion and extension of lumbar [spine] somewhat guarded secondary to pain, [antalgic gait noted] Neurological: Speech clear, no gross sensory deficit Assessment:: Degenerative disc disease lumbar spine with lumbar radiculopathy symptoms, spinal stenosis Plan:: we will continue the patient's tramadol 50 mg 1 tablet p.o. 4 times daily, methocarbamol 1 tablet p.o. daily, gabapentin 300 mg 1 tablet p.o. daily. We will give the patient 3 months medication plan to see him back in the clinic in 3 months. Risks and benefits of the medication have been explained in detail to the patient. The patient does understand the risk of dependence on the medication when given over a prolonged period. Patient has been advised of risks of oversedation with the prescribed medication. Narcan has been offered to the paitent in the event of oversedation. Patient has been advised that a family member should also be educated regarding administration of Narcan. The patient has been advised to consult with his/her primary care provider and pharmacist regarding drug-drug interaction of medications currently prescribed. Patient has been prescribed a controlled substance after being counseled on the medication, medication safety, and possible side effects. [facility] report has been obtained and reviewed prior to prescription and found to be appropriate. Opioid contract was reviewed and signed by the patient, and that they have agreed to all of the terms set forth by our compliance program. Patient has been instructed to contact the clinic with any concerns before the next appointment. Dr. Crum has reviewed this note and agrees with this plan of care. This note was dictated using voice recognition software and make contain errors or omissions. [facility] History I have reviewed the patient's past medical history: Yes Medical History: Reports:: Arrhythmia Denies:: Cancer, Diabetes Mellitus Type 1, Diabetes Mellitus Type 2, Internal Pacemaker, MRSA, Seizures *Have you ever receive
== END ==
PROVIDERS: Visit Provider Clinical Nurse Specialist Family Health
DX: M51.16 Intervertebral disc disorders with radiculopathy, lumbar region (principal); M48.00 Spinal stenosis, site unspecified
CPT/HCPCS: 99212; G0463

== ENCOUNTER → 2022-01-14 14:16 | Outpatient (POV) | payer BC, SELFPAY ==
[2022-01-14 14:27] VITALS: BP 149/96; PULSE 98; RESP 18; TEMP 37.4; O2SAT 99; BMI 33.0
--- NOTE | 2022-01-14 16:22 | HMH.PAINSOAP ---
[facility] Pain Management SOAP Note Subjective:: Patient is a pleasant 31-year-old male who is here for medication refill and follow-up. Patient is currently being treated for degenerative disc disease of lumbar spine with lumbar radiculopathy symptoms, spinal stenosis. Patient is being managed with tramadol 50 mg 4 times daily, methocarbamol 1 tablet p.o., gabapentin 300 mg daily. Patient denies any side effects from the medications. Patient denies any changes to the location and type of pain. Patient states that this is adequately helping manage their pain. Rates pain as 2 out of 10. [facility] number [id number] with an active morphine equivalent 0. Drug screens have been reviewed and appropriate. Review of Systems: General: No recent weight changes, no fever, no sleep disturbances Respiratory: No cough, no shortness of air, no recurring pulmonary infections Cardiovascular/peripheral vascular: No chest pain, no palpitations, no edema, no shortness of breath Gastrointestinal: No new onset incontinence, normal bowel movements reported Genitourinary: No new onset incontinence Musculoskeletal: Low back pain Psychiatric: [Normal mood/affect] Neurological: [Denies weakness in extremities], [denies balance issues] Objective:: Physical Exam: General: Alert and oriented x3, no acute distress, pleasant and cooperative, [on room air] Lungs: Respirations even and unlabored, symmetrical chest expansion Eyes: PERRL Musculoskeletal: Flexion and extension of lumbar [spine] somewhat guarded secondary to pain, [antalgic gait noted] Neurological: Speech clear, no gross sensory deficit Assessment:: Degenerative disc disease of lumbar spine, spinal stenosis with neurogenic claudication Plan:: We will continue the patient's tramadol 50 mg 4 times a day, methocarbamol 750 mg daily, gabapentin 300 mg daily. We will provide the patient with once of refills. We would like to see the patient back in 3 months for follow-up and reevaluation of chronic pain syndrome. We have tried to get this patient approved for spinal cord stimulator in the past. Patient has been denied by his insurance. Patient has tried injective therapies in the past, chiropractic adjustments. He has also seen neurosurgery at who said that he is a nonsurgical candidate. The neurosurgeons told him that they think the patient would benefit significantly from the spinal cord stimulator. 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 He does continue to have low back pain that is worse with lumbar extension and better with flexion. This does radiates to his bilateral lower extremities. He cannot tolerate any prolonged activity such as standing and walking. Again, with these presentations, patient would be a good candidate for a spinal cord stimulator. Patient has been advised of risks of oversedation with the prescribed medication. Narcan has been offered to the patient in the event of oversedation. Patient has been advised that a family member should also be educated regarding administration of Narcan. Patient has been instructed to contact the clinic with any concerns before the next appointment. Dr. Crum has reviewed this note and agrees with this plan of care. This note was dictated using voice recognition software and make contain errors or omissions. [facility] History Medical History: Reports:: Arrhythmia Denies:: Cancer, Diabetes Mellitus Type 1, Diabetes Mellitus Type 2, Internal Pacemaker, MRSA, Seizures *Have you ever received a pneumonia vaccine?: No *Have you received a flu vaccine this season?: Yes Laterality Cases: Left: Arthroscopy Knee, Right: Other, Bilateral: Tonsillectomy Other Surgeries: No: Pacemaker Amputation: No Fractures: No - *Social History Smoking Status: Never smoker Alcohol Intake: never *Occupational Status:: employed Housing: house Household Mem
== END ==
PROVIDERS: Visit Provider Student in an Organized Health Care Education/Training Program
DX: M51.36 Other intervertebral disc degeneration, lumbar region (principal); M48.062 Spinal stenosis, lumbar region with neurogenic claudication
CPT/HCPCS: 99212; G0463

== ENCOUNTER → 2022-04-26 10:19 | Outpatient (POV) | payer BC, SELFPAY ==
[2022-04-26 10:32] VITALS: BP 151/97; PULSE 90; RESP 18; TEMP 36.6; O2SAT 100; BMI 30.5
--- NOTE | 2022-04-26 10:39 | HMH.PAINSOAP ---
[facility] Pain Management SOAP Note Subjective:: Patient is a pleasant 31-year-old male who is here for medication refill and follow-up. Patient is currently being treated for degenerative disease of lumbar spine with lumbar radiculopathy symptoms, spinal stenosis. Patient is being managed with tramadol 50 mg 4 times a day, methocarbamol 750 mg daily, gabapentin 300 mg daily. Patient denies any side effects from the medications. Patient denies any changes to the location and type of pain. Patient states that this is adequately helping manage their pain. Rates pain as 3 out of. [facility] number [id number] with an active morphine equivalent 20. Drug screens have been reviewed and appropriate. Review of Systems: General: No recent weight changes, no fever, no sleep disturbances Respiratory: No cough, no shortness of air, no recurring pulmonary infections Cardiovascular/peripheral vascular: No chest pain, no palpitations, no edema, no shortness of breath Gastrointestinal: No new onset incontinence, normal bowel movements reported Genitourinary: No new onset incontinence Musculoskeletal: Low back pain Psychiatric: [Normal mood/affect] Neurological: [Denies weakness in extremities], [denies balance issues] Objective:: Physical Exam: General: Alert and oriented x3, no acute distress, pleasant and cooperative Lungs: Respirations even and unlabored, symmetrical chest expansion Eyes: PERRL Musculoskeletal: Flexion and extension of lumbar [spine] somewhat guarded secondary to pain, [antalgic gait noted] Neurological: Speech clear, no gross sensory deficit Assessment:: Degenerative disease of lumbar spine with lumbar radiculopathy symptoms, spinal stenosis Plan:: We will continue the patient's tramadol 50 mg 4 times a day, methocarbamol 750 mg daily, gabapentin 300 mg daily. We will provide the patient with 3 months of refills. We would like to see the patient back in 3 months for follow-up and reevaluation of chronic pain syndrome. We have tried to get this patient approved for spinal cord stimulator in the past. Patient has been denied by his insurance. Patient has tried injective therapies in the past, chiropractic adjustments. He has also seen neurosurgery at who said that he is a nonsurgical candidate. The neurosurgeons told him that they think the patient would benefit significantly from the spinal cord stimulator. 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 He does continue to have low back pain that is worse with lumbar extension and better with flexion. This does radiates to his bilateral lower extremities. He cannot tolerate any prolonged activity such as standing and walking. Again, with these presentations, patient would be a good candidate for a spinal cord stimulator. Patient has been advised of risks of oversedation with the prescribed medication. Narcan has been offered to the patient in the event of oversedation. Patient has been advised that a family member should also be educated regarding administration of Narcan. Patient has been instructed to contact the clinic with any concerns before the next appointment. Dr. Crum has reviewed this note and agrees with this plan of care. This note was dictated using voice recognition software and make contain errors or omissions. [facility] History Medical History: Reports:: Arrhythmia Denies:: Cancer, Diabetes Mellitus Type 1, Diabetes Mellitus Type 2, Internal Pacemaker, MRSA, Seizures *Have you ever received a pneumonia vaccine?: No *Have you received a flu vaccine this season?: Yes Laterality Cases: Left: Arthroscopy Knee, Right: Other, Bilateral: Tonsillectomy Other Surgeries: No: Pacemaker Amputation: No Fractures: No - *Social History Smoking Status: Never smoker Alcohol Intake: never *Occupational Status:: other Housing: house Household Members: spouse *Travel in the last 8 wee
== END ==
PROVIDERS: Visit Provider Student in an Organized Health Care Education/Training Program
DX: M51.16 Intervertebral disc disorders with radiculopathy, lumbar region (principal); M48.061 Spinal stenosis, lumbar region without neurogenic claudication
CPT/HCPCS: 99212; G0463

== ENCOUNTER → 2022-08-16 13:32 | Outpatient (POV) | payer BC, SELFPAY ==
[2022-08-16 13:43] VITALS: BP 138/89; PULSE 83; RESP 18; TEMP 36.7; O2SAT 98; BMI 30.1
--- NOTE | 2022-08-16 13:53 | EXP.PAIN.SOA ---
[facility] Pain Management SOAP Note Subjective:: Patient is a pleasant 31-year-old male that presents today for medication refill and follow-up. We are currently treating the patient for degenerative disc disease of lumbar spine with lumbar radiculopathy symptoms, spinal stenosis, lumbar spondylosis, facet arthropathy. Today the patient rates his pain a 3 out of 10. Patient states the pain is in his low back that radiates into his lower extremities. Patient does state that he has been experiencing worsening pain in his low back recently. Patient denies any new trauma or injury. He denies any change in location or type of pain he experiences. Previously the patient has had injective therapy that provided significant improvement of his symptoms. Patient is currently managed with gabapentin 300 mg daily, tramadol 50 mg 4 times a day and methocarbamol 750 mg daily. Patient denies any side effects from these medications. He states these medications do adequately help manage his pain symptoms. He is requesting refills at today's visit. His Robert is [phone] with a morphine equivalent of 0. It has been reviewed and appropriate. Review of Systems: General: No recent weight changes, no fever, no sleep disturbances Respiratory: No cough, no shortness of air, no recurring pulmonary infections Cardiovascular/peripheral vascular: No chest pain, no palpitations, no edema, no shortness of breath Gastrointestinal: No new onset incontinence, normal bowel movements reported Genitourinary: No new onset incontinence Musculoskeletal: Low back pain Psychiatric: [Normal mood/affect] Neurological: [Denies weakness in extremities], [denies balance issues] Objective:: Physical Exam: General: Alert and oriented x3, no acute distress, pleasant and cooperative Lungs: Respirations even and unlabored, symmetrical chest expansion Eyes: PERRL Musculoskeletal: Flexion and extension of lumbar [spine] somewhat guarded secondary to pain, [antalgic gait noted] Neurological: Speech clear, no gross sensory deficit Assessment:: Degenerative disc disease of lumbar spine with lumbar radiculopathy symptoms, spinal stenosis, facet arthropathy, lumbar spondylosis Plan:: Patient is experiencing significant pain in his low back with radicular symptoms into his lower extremities. Patient did have limited range of motion of his lumbar spine during today's visit. I have discussed with the patient regarding having repeat lumbar epidural. Risk and benefits were discussed with the patient. He would like to proceed forward with this plan of care. He is not currently on any blood thinners. I will refill his gabapentin 300 mg daily, tramadol 50 mg 4 times a day and methocarbamol 750 mg daily and provide a 1 month supply of these medications. We will schedule the patient for a lumbar epidural steroid injection at L4-L5. Patient has been instructed to contact the clinic with any concerns before the next appointment. Dr. Crum has reviewed this note and agrees with this plan of care. This note was dictated using voice recognition software and make contain errors or omissions. PFSH PFS Social History Smoking Status: Never smoker alcohol intake: never current occupational status: employed Travel in the last 8 weeks: None household members: spouse housing: house caffeine: Yes
== END | disposition home or self-care (01) ==
PROVIDERS: PCP Family Medicine; Visit Provider Nurse Practitioner Family
DX: M51.16 Intervertebral disc disorders with radiculopathy, lumbar region (principal); M48.00 Spinal stenosis, site unspecified; M47.896 Other spondylosis, lumbar region
CPT/HCPCS: 99212; G0463

== ENCOUNTER 2022-08-24 11:00 | Day surgery (SDC) | payer BC, SELFPAY ==
[2022-08-24 11:14] VITALS: BP 137/81; PULSE 91; RESP 18; TEMP 37.6; O2SAT 100; BMI 30.4
[2022-08-24 11:31] VITALS: BP 145/92; PULSE 91; RESP 18; O2SAT 97
[2022-08-24 11:33] VITALS: BP 145/92; PULSE 91; RESP 18; O2SAT 97
[2022-08-24 11:37] VITALS: BP 143/78; PULSE 84; RESP 18; O2SAT 98
--- NOTE | 2022-08-24 12:00 | P.PCN_ITS ---
Procedure Date: 08/24/22 Time: 11:40 Anesthesiologist:: Federico Thomas CRNA Complications:: None Pre-procedure Diagnosis:: Degenerative disc disease lumbar spine multilevels. Lumbar radiculopathy. Post-procedure Diagnosis:: Same. Indications for Procedure:: Very pleasant 31-year-old male that comes our clinic today for a lumbar epidural steroid injection of the L4-5 level. Patient also being managed with tramadol and gabapentin. He is doing very well with his current regime. He reports lumbar epidural steroid injection helps him about 50 to 75% for couple of months. He rates his pain today 6/10 he describes his low back pain as constant, dull, aching. Also complains of bilateral hip and leg radicular symptoms at times. Procedure Details:: Procedure: Lumbar epidural steroid injection under fluoroscopy Informed consent was obtained and the risks and benefits of the procedure were explained to the patient. The patient was taken to the procedure room and noninvasive monitors placed, including noninvasive blood pressure cuff and pulse oximeter. The back was viewed using C-arm Fluoroscopy and prepped using Chloraprep as a cleansing solution and the L4-L5 interspace was palpated. Skin and subcutaneous tissues were anesthetized using lidocaine 1.5% and a 25-gauge needle. After this, an 18-gauge Touhy epidural needle was placed into the L4-L5 interspace and advanced using fluoroscopic guidance and loss of resistance to ai r until the epidural space was encountered. After confirmation of needle placement in the epidural space, with dye, a solution containing normal saline, 3 mL and Depo-Medrol 80 mg were incrementally injected into the lumbar epidural space. The patient tolerated the procedure well with no complications. The patient was observed in the Pain Clinic and then discharged home neurologically intact. Plan and Disposition:: Patient was discharged without incident.
== END 2022-08-24 11:37 | disposition home or self-care (01) ==
LOC: SC.PAINP 11:01
PROVIDERS: PCP Family Medicine; Visit Provider Nurse Anesthetist, Certified Registered
DX: M51.16 Intervertebral disc disorders with radiculopathy, lumbar region (principal)
CPT/HCPCS: 62323; J1040